=== PATIENT | female | born 1990 | race Caucasian/White ===

== ENCOUNTER 2017-08-08 19:16 | Emergency (ER) | payer OTHER ==
[~2017-08-08] VITALS: Ht 167.6 cm; Wt 62.4 kg
[2017-08-08 19:18] VITALS: BP 132/61; PULSE 61; RESP 18; TEMP 98.9; O2SAT 100
--- NOTE | 2017-08-08 19:42 | PD ---
HPI Chief Complaint: Exposure to Blood/Body Fluids Time Seen by Provider: 19:24 Travel History International Travel<30 days: No Contact w/Intl Traveler<30days: No Traveled to known affect area: No History of Present Illness HPI 27-year-old female presents to the emergency department under police custody. Patient was a source patient for another officers exposure. Patient states she just wants her labs drawn and wants to go. She states that she told the triage nurse had pain in her right wrist, but does not want this checked out. She also has swelling and ecchymosis to the right eye orbit. Once again, she states she does not want imaging done. She consents to have her labs drawn, but then wants to go. Patient states she has history of seizures. She is not currently on any medications. Mild severity. Patient denies any LOC. She denies any neck pain or back pain. No chest pain or abdominal pain. No vomiting. 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 SKIN: Focused skin assessment warm/dry. Patient has abrasion to the right posterior elbow. She has ecchymosis and swelling to the right eye orbit. No bony step-off or crepitus. HEAD: Normocephalic. EYES: No scleral icterus. No injection or drainage. ENT: Mucosa pink and moist. No erythema or exudates. No uvular edema. No uvular , palatal, or tonsillar deviation. Airway patent. Nasal turbinates appear normal without nasal blood, purulent drainage or septal hematoma. Bilateral tympanic membranes clear without erythema or perforation. NECK: Supple, trachea midline. No JVD or lymphadenopathy. CARDIOVASCULAR: Regular rate and rhythm without murmurs, gallops, or rubs. RESPIRATORY: Breath sounds equal bilaterally. No accessory muscle use. Lung sounds are clear to auscultation. GASTROINTESTINAL: Abdomen soft, non-tender, nondistended. MUSCULOSKELETAL: No cyanosis, or edema. No bony point tenderness. BACK: Nontender without obvious deformity. No CVA tenderness. Data Data Last Documented VS Vital Signs Date Time Temp Pulse Resp B/P (MAP) Pulse Ox O2 Delivery O2 Flow Rate FiO2 08/08/17 19:18 98.9 61 18 132/61 (84) 100 MDM Medical Decision Making Medical Screen Exam Complete: Yes Emergency Medical Condition: Yes Medical Record Reviewed: Yes Differential Diagnosis Source patient for exposure versus abrasion versus head injury versus contusion Narrative Course 27-year-old female presents to the emergency department to have her labs drawn as a source patient for an officers exposure. The patient does not want any imaging done. She does have ecchymosis and swelling noted to the right eye orbit, but states she does not want any imaging done. She is aware that I cannot rule out fracture without imaging. However, she still adamantly declines and only wants her labs drawn. Patient states her tetanus immunization is up-to-date. Wound care will be completed on abrasion to the right elbow. The patient was discharged in stable condition with instructions, including return instructions and follow up instructions. Diagnosis Primary Impression: Elbow abrasion Qualified Codes: S50.311A - Abrasion of right elbow, initial encounter Additional Impression: Facial injury Qualified Codes: S09.93XA - Unspecified injury of face, initial encounter Referrals: Primary Care Physician call for appointment Patient Instructions: Abrasion (ED), General Instructions Additional Instructions: Clean abrasions twice daily with soap and water. Ice to right eye for 20 mins 4-5 times daily. You have declined any imaging to be done today. Your labs were drawn as a source patient for an exposure. Follow-up with a primary care physician. Return to the emergency department for any acute worsening of symptoms. Med/Other Pt SpecificInfo: No Change to Meds Disposition: 01 DISCHARGE HOME Condition: Stable Lisa Bhat August 08, 2017 19:42
== END 2017-08-08 20:35 | disposition home or self-care (01) ==
LOC: PHEFT 19:16
DX: S50.311A Abrasion of right elbow, initial encounter (principal); S09.93XA Unspecified injury of face, initial encounter; M25.531 Pain in right wrist; X58.XXXA Exposure to other specified factors, initial encounter; Z72.0 Tobacco use
CPT/HCPCS: 99283